=== PATIENT | male | born 1955 | race African-American/Black ===

== ENCOUNTER 2018-11-18 14:22 | Emergency (ER) | payer MEDICARE, MEDICAID ==
[~2018-11-18] VITALS: Ht 180.3 cm; Wt 81.8 kg
[2018-11-18 16:30] VITALS: BP 147/72
== END 2018-11-18 17:32 | disposition home or self-care (01) ==
LOC: ED 17:26
DX: J44.1 Chronic obstructive pulmonary disease with (acute) exacerbation (principal); Z87.891 Personal history of nicotine dependence
CPT/HCPCS: 36415; 71045; 80048; 82040; 83880; 84484; 85025; 93005; 94640; 99284; J7512; J7620